=== PATIENT | male | born 1980 | race Caucasian/White ===

== ENCOUNTER 2019-10-02 21:29 | Emergency (ER) | payer BC ==
[2019-10-02] MEDS ORDERED: ONDANSETRON HCL 4 MG/2 ML VIAL ONE (21:57)
[2019-10-02 22:03] LABS: BASOPHILS % (AUTO) 0.7 % (0.0-5.0); EOSINOPHILS % (AUTO) 1.6 % (0.0-8.0); HEMATOCRIT 42.4 % (42-54); LYMPHOCYTES % (AUTO) 2.8 % (21.0-51.0); MEAN CORPUSCULAR HEMOGLOBIN 28.9 pg (27.0-33.0); MEAN CORPUSCULAR HGB CONC 34.2 g/dL (32.0-36.0); MEAN CORPUSCULAR VOLUME 84.6 fL (79-99); NEUTROPHILS % (AUTO) 87.6 % (40.0-77.0); PLATELET COUNT (AUTO) 280 K/uL (130-400); RED BLOOD CELL COUNT(AUTO) 5.01 MIL/uL (4.50-6.20); WHITE BLOOD COUNT (AUTO) 10.9 K/uL (4.8-10.8)
[2019-10-02 22:23] LABS: ALBUMIN 4.2 g/dL (3.5-5.0); BILIRUBIN,TOTAL 0.5 mg/dL (0.2-1.0); CREATININE 0.9 mg/dL (0.5-1.5); TOTAL PROTEIN, SERUM 7.5 g/dL (6.0-8.3)
[2019-10-02] MEDS ORDERED: IBUPROFEN 200 MG TAB ONE (22:36)
[2019-10-02 22:51] LABS: POTASSIUM 3.9 mmol/L (3.5-5.1)
== END 2019-10-03 00:11 | disposition home or self-care (01) ==
LOC: EDH 21:29
DX: R11.2 Nausea with vomiting, unspecified (principal); R51 Headache; R53.1 Weakness; Z90.81 Acquired absence of spleen
CPT/HCPCS: 36415; 70450; 80053; 85025; 87804 ×2; 96361; 96374; 99284; J2405